=== PATIENT | female | born 1940 | race American Indian/Alaskan Native ===

== ENCOUNTER 2017-02-08 10:46 | Inpatient (IN) | payer MEDICARE ==
[2017-02-08 11:38] LABS: Basophils % (Auto) 0.5 % (0.0-1.8); Eosinophils % (Auto) 0.9 % (0.0-4.3); Hematocrit 36.1 % (30.3-42.9); Hemoglobin 11.9 gm/dl (10.1-14.3); Mean Corpuscular HGB Conc 33 % (30-34); Mean Corpuscular Hemoglobin 28 pg (28-32); Mean Corpuscular Volume 86 fl (79-97); Platelet Count 171 K/mm3 (140-440); Red Blood Count 4.23 M/mm3 (3.65-5.03); Red Cell Distribution Width 14.6 % (13.2-15.2); White Blood Count 5.1 K/mm3 (4.5-11.0)
[2017-02-08 11:41] LABS: Anion Gap 19 mmol/L; BUN/Creatinine Ratio 21; Blood Urea Nitrogen 19 mg/dL (7-17); Calcium 9.2 mg/dL (8.4-10.2); Carbon Dioxide 22 mmol/L (22-30); Chloride 102.5 mmol/L (98-107); Glucose 88 mg/dL (65-100); Potassium 3.9 mmol/L (3.6-5.0); Sodium 140 mmol/L (137-145)
[2017-02-08] MEDS ORDERED: NITROSTAT SL PRN (12:33)
[2017-02-08] MEDS ORDERED: NACL 0.9% 250ML 250 ML IV ONE (12:33)
--- NOTE | 2017-02-08 12:35 | Emergency Department Report ---
ED Chest Pain HPI - General Chief Complaint: Chest Pain Stated Complaint: CP Time Seen by Provider: 02/08/17 12:25 Source: patient, RN notes reviewed Mode of arrival: Ambulatory Limitations: No Limitations - History of Present Illness Initial Comments: This is a 76-year-old female who was previously unknown to this provider. She is visiting from [place] in [place]. Past medical history includes DVT, pulmonary embolus, currently on Coumadin therapy, hypertension, heart attack, does not have a stent. Presents to the ER with chest pain. The chest pain is left-sided. It did not radiate to the back, arms or neck. There is no vomiting or diaphoresis. There is no leg pain. There is no leg swelling. Patient recently flew here from [place]. There is no hematemesis or bright red blood per rectum. There is no vomiting or diaphoresis. Patient reports that she is in town until February 20, and cannot secure outpatient follow up with a buttonhole marker locally. She further reports that as far she knows, she hasn't had a recent stress test or cardiac catheterization. MD Complaint: chest pain -: Sudden, minutes(s) Onset: during exertion Pain Location: left chest Pain Radiation: none Severity: mild Consistency: now resolved Improves With: nothing Worsens With: nothing Context: recent immobilization, recent travel re: denies: nausea, vomting, diaphoresis, dyspnea, sense of impending doom Treatments Prior to Arrival: other (patient reports taking Coumadin) Aspirin use within the Past 7 Days: (0) No - Related Data Home Medications Medication Instructions Recorded Confirmed Last Taken Betaxolol HCl 10 mg PO DAILY 02/08/17 02/08/17 02/08/17 Cholecalciferol (Vitamin D3) 1,000 unit PO DAILY 02/08/17 02/08/17 02/07/17 [Vitamin D3] Citalopram [celeXA] 10 mg PO QHS 02/08/17 02/08/17 02/07/17 ISOSORBIDE MONOnitrate [Imdur ER] 30 mg PO DAILY 02/08/17 02/08/17 02/08/17 Pitavastatin Calcium [LiVALO] 2 mg PO DAILY 02/08/17 02/08/17 02/07/17 Warfarin [Coumadin] 7 mg PO QDAY 02/08/17 02/08/17 02/07/17 metFORMIN [Glucophage] 500 mg PO QDAY 02/08/17 02/08/17 02/07/17 Allergies Allergy/AdvReac Type Severity Reaction Status Date / Time codeine Allergy Unknown Verified 02/08/17 10:59 Heart Score - HEART Score History: Slightly suspicious EKG: Non-specific Age: > 65 Risk factors: 1-2 risk factors Troponin: < normal limit HEART Score: 4 - Critical Actions Critical Actions: 4-6 pts:12-16.6% risk of adverse cardiac event. Should be admitted ED Review of Systems ROS: Stated complaint: CP Other details as noted in HPI Constitutional: denies: fever Eyes: denies: vision change ENT: denies: epistaxis Respiratory: denies: wheezing Cardiovascular: chest pain Gastrointestinal: denies: vomiting Genitourinary: as per HPI Musculoskeletal: as per HPI Skin: as per HPI Neurological: as per HPI Psychiatric: as per HPI Hematological/Lymphatic: as per HPI ED Past Medical Hx - Past Medical History Previous Medical History?: Yes Hx Hypertension: Yes Hx Heart Attack/AMI: Yes Additional medical history: PE - Surgical History Past Surgical History?: No - Social History Smoking Status: Never Smoker Substance Use Type: None - Medications Home Medications: Home Medications Medication Instructions Recorded Confirmed Last Taken Type Betaxolol HCl 10 mg PO DAILY 02/08/17 02/08/17 02/08/17 History Cholecalciferol (Vitamin D3) 1,000 unit PO DAILY 02/08/17 02/08/17 02/07/17 History [Vitamin D3] Citalopram [celeXA] 10 mg PO QHS 02/08/17 02/08/17 02/07/17 History ISOSORBIDE MONOnitrate [Imdur ER] 30 mg PO DAILY 02/08/17 02/08/17 02/08/17 History Pitavastatin Calcium [LiVALO] 2 mg PO DAILY 02/08/17 02/08/17 02/07/17 History Warfarin [Coumadin] 7 mg PO QDAY 02/08/17 02/08/17 02/07/17 History metFORMIN [Glucophage] 500 mg PO QDAY 02/08/17 02/08/17 02/07/17 History ED Physical Exam - General Limitations: No Limitations General appearance: alert, in no apparent distress - Head Head exam: Present: atraumatic, normocephalic - Eye Eye exam: Present: normal appearance, EOMI. Absent: nystagmus - ENT ENT exam: Present: normal exam, normal orophraynx, mucous membranes moist, normal external ear exam - Neck Neck exam: Present: normal inspection, full ROM - Respiratory Respiratory exam: Present: normal lung sounds bilaterally. Absent: respiratory distress - Cardiovascular Cardiovascular Exam: Present: regular rate, normal rhythm, normal heart sounds. Absent: bradycardia, tachycardia, irregular rhythm, systolic murmur, diastolic murmur, rubs, gallop - GI/Abdominal GI/Abdominal exam: Present: soft, normal bowel sounds. Absent: distended, tenderness, guarding, rebound, rigid - Extremities Exam Extremities exam: Present: normal inspection, full ROM, normal capillary refill. Absent: tenderness, pedal edema, joint swelling, calf tenderness - Back Exam Back exam: Present: normal inspection, full ROM. Absent: tenderness, CVA tenderness (R), paraspinal tenderness, vertebral tenderness - Neurological Exam Neurological exam: Present: alert, oriented X3, CN II-XII intact, normal gait, other (Extraocular movements intact. Tongue midline. No facial droop. Facial sensation intact to light touch in the V1, V2, V3 distribution bilaterally. 5 and 5 strength in 4 extremities.. Sensation is intact to light touch in 4 extremities.). Absent: motor sensory deficit - Psychiatric Psychiatric exam: Present: normal affect, normal mood - Skin Skin exam: Present: warm, dry, intact, normal color. Absent: rash ED Course Vital Signs 02/08/17 02/08/17 02/08/17 10:55 11:57 12:00 Temperature 97.2 F L Pulse Rate 66 59 L 52 L Respiratory 12 13 8 L Rate Blood Pressure 157/85 156/90 156/90 O2 Sat by Pulse 100 100 Oximetry 02/08/17 02/08/17 02/08/17 12:30 13:00 14:16 Temperature Pulse Rate 59 L 58 L Respiratory 12 12 14 Rate Blood Pressure 136/79 143/80 143/80 O2 Sat by Pulse 100 100 Oximetry 02/08/17 02/08/17 02/08/17 14:30 15:00 16:00 Temperature Pulse Rate 57 L 55 L Respiratory 9 L 13 Rate Blood Pressure 143/80 145/77 148/86 O2 Sat by Pulse 100 100 Oximetry 02/08/17 02/08/17 02/08/17 16:30 17:00 17:30 Temperature Pulse Rate Respiratory Rate Blood Pressure 147/88 141/80 142/70 O2 Sat by Pulse Oximetry - Reevaluation(s) Reevaluation #1: 02/08/17 15:05 CT scan of the chest is negative for pulmonary embolus. Atelectasis versus infiltrate is suggested. Based on history, clinically doubt pneumonia, patient not coughing she is not having fevers, she is not having mucus production. However she'll be covered empirically with doxycycline, as well as azithromycin, Levaquin not appropriate given that patient is currently on Coumadin therapy. Case presents to the Hospital physician, Dr. Echeverria, he accepts the patient to the medical service. RAMO score - Ramo Score Age > 65: (1) Yes Aspirin use within the Past 7 Days: (0) No 3 or more CAD Risk Factors: (0) No 2 or more Angina events in past 24 hrs: (0) No Known CAD with more than 50% Stenosis: (0) No Elevated Cardiac Markers: (0) No ST Deviation Greater than 0.5mm: (0) No RAMO Score: 1 ED Medical Decision Making - Lab Data Result diagrams: 02/08/17 11:07 02/08/17 11:07 Vital Signs 02/08/17 10:55 Temperature 97.2 F L Pulse Rate 66 Respiratory 12 Rate Blood Pressure 157/85 O2 Sat by Pulse 100 Oximetry Lab Results 02/08/17 02/08/17 02/08/17 Range/Units 11:07 11:07 12:42 WBC 5.1 (4.5-11.0) K/mm3 RBC 4.23 (3.65-5.03) M/mm3 Hgb 11.9 (10.1-14.3) gm/dl Hct 36.1 (30.3-42.9) % MCV 86 (79-97) fl MCH 28 (28-32) pg MCHC 33 (30-34) % RDW 14.6 (13.2-15.2) % Plt Count 171 (140-440) K/mm3 Lymph % (Auto) 39.5 H (13.4-35.0) % [place] % (Auto) 9.0 H (0.0-7.3) % Eos % (Auto) 0.9 (0.0-4.3) % Baso % (Auto) 0.5 (0.0-1.8) % Lymph # 2.0 (1.2-5.4) K/mm3 [place] # 0.5 (0.0-0.8) K/mm3 Eos # 0.0 (0.0-0.4) K/mm3 Baso # 0.0 (0.0-0.1) K/mm3 Seg Neutrophils % 50.1 (40.0-70.0) % Seg Neutrophils # 2.5 (1.8-7.7) K/mm3 PT 22.6 H (12.2-14.9) Sec. INR 1.87 H (0.87-1.13) APTT 33.2 (24.2-36.6) Sec. D-Dimer 184.27 (0-234) ng/mlDDU Sodium 140 (137-145) mmol/L Potassium 3.9 (3.6-5.0) mmol/L Chloride 102.5 (98-107) mmol/L Carbon Dioxide 22 (22-30) mmol/L Anion Gap 19 mmol/L BUN 19 H (7-17) mg/dL Creatinine 0.9 (0.7-1.2) mg/dL Estimated GFR > 60 ml/min BUN/Creatinine Ratio 21 % Glucose 88 (65-100) mg/dL Calcium 9.2 (8.4-10.2) mg/dL Troponin T < 0.010 (0.00-0.029) ng/mL - EKG Data -: EKG Interpreted by [facility] - EKG Data 02/08/17 13:36 EKG #1 demonstrates normal sinus bradycardia, 57 bpm, left axis deviation, motion artifact, abnormal EKG, not morphologically consistent with ST elevation myocardial infarction 02/08/17 14:21 EKG #2 was unremarkable, unchanged from prior, still has persistent left axis deviation, not morphologically consistent with ST elevation myocardial infarction - Radiology Data Radiology results: report reviewed, image reviewed CT scan of the chest, interpreted by radiology: - Medical Decision Making Differential diagnosis, including without limited to: Pulmonary embolus, acute coronary syndrome, GERD, gastritis, pneumonia, hiatal hernia, reflux, Assessment and plan: 76-year-old female, subtherapeutic INR, chest pain, recent airplane trip from [place], I do not feel the patient is low risk by well's criteria, therefore even though her d-dimer is negative, given her subtherapeutic INR and recent travel, a CT scan of the chest is obtained to exclude recurrent pulmonary embolus. She also reports a history of cardiac disease, hasn't had a recent risk stratification. Therefore, the patient will be admitted to the hospital for acute coronary syndrome or stratification. CT scan of the chest interpretation is pending at this time, she indicates she is not having any pain at this time. Critical care attestation.: If time is entered above; I have spent that time in minutes in the direct care of this critically ill patient, excluding procedure time. ED Disposition Clinical Impression: Chest pain, Subtherapeutic international normalized ratio (INR) Disposition: OP ADMIT IP TO THIS HOSP Is pt being admited?: Yes Does the pt Need Aspirin: Yes Condition: Good
[2017-02-08 13:10] LABS: INR 1.87 (0.87-1.13)
[2017-02-08 13:11] LABS: Partial Thromboplastin Time 33.2 Sec. (24.2-36.6)
[2017-02-08] MEDS ORDERED: BABY ASPIRIN PO ONE (13:40)
--- NOTE | 2017-02-08 14:24 | Cat Scan Report ---
FINAL REPORT EXAM: CT ANGIO CHEST HISTORY: cp TECHNIQUE: CT angiography of the chest was performed. PRIORS: None. FINDINGS: There are coronary artery atherosclerotic calcifications. There is no aortic dissection seen. There is no significant mediastinal or hilar mass seen. There are no filling defects seen within the pulmonary arterial circulation to suggest pulmonary embolism. There is some bibasilar interstitial and airspace density which may be acute infiltrate. There is also some dependent atelectasis. There is no pneumothorax seen. IMPRESSION: There is no pulmonary embolism or aortic dissection seen. There are bibasilar interstitial and airspace lung parenchymal opacities which could represent acute interstitial and alveolar infiltration superimposed on some dependent atelectasis.
[2017-02-08] MEDS ORDERED: VIBRAMYCIN PO ONE (15:04)
--- NOTE | 2017-02-08 15:26 | History and Physical Report ---
History of Present Illness Chief complaint: My chest started hurting History of present illness: 76 YO Female with HTN, NM, PE on coumadin, DM, HLD, Metabolic Syndrome presents to ED for evaluation. Pt states that she experienced acute onset left sided chest pain while walking in the grocery store this morning. Pain was 9/10, sharp , nonradiating, localized to the left chest, not worsened with exertion, or relieved with rest. Pt denies diaphoresis, palpitations, NVD, Syncope, Leg swelling, Calf pain, recent ill contacts, trauma, hemoptysis, BRBPR, productive cough. Pt seen and evaluated in ED and found to have symptoms consistent with ACS. Pt treated IAW chest pain protocol. Cardiology consulted in ED and patient is admitted to telemetry. Past History Past Medical History: acute NM, diabetes, hypertension, hyperlipidemia, pulmonary embolism, other (Metabolic syndrome) Past Surgical History: No surgical history, Other (reviewed) Social history: , lives with family. denies: smoking, alcohol abuse, prescription drug abuse Family history: diabetes, hypertension Medications and Allergies Allergies Allergy/AdvReac Type Severity Reaction Status Date / Time codeine Allergy Unknown Verified 02/08/17 10:59 Home Medications Medication Instructions Recorded Confirmed Last Taken Type Betaxolol HCl 10 mg PO DAILY 02/08/17 02/08/17 02/08/17 History Cholecalciferol (Vitamin D3) 1,000 unit PO DAILY 02/08/17 02/08/17 02/07/17 History [Vitamin D3] Citalopram [celeXA] 10 mg PO QHS 02/08/17 02/08/17 02/07/17 History ISOSORBIDE MONOnitrate [Imdur ER] 30 mg PO DAILY 02/08/17 02/08/17 02/08/17 History Pitavastatin Calcium [LiVALO] 2 mg PO DAILY 02/08/17 02/08/17 02/07/17 History Warfarin [Coumadin] 7 mg PO QDAY 02/08/17 02/08/17 02/07/17 History metFORMIN [Glucophage] 500 mg PO QDAY 02/08/17 02/08/17 02/07/17 History Active Meds: Active Medications Nitroglycerin (Nitrostat) 0.4 mg SL .Q5MIN PRN PRN Reason: Chest Pain Review of Systems Constitutional: no weight loss, no weight gain, no fever, no chills Ears, nose, mouth and throat: no ear pain, no ear discharge, no tinnitis, no decreased hearing, no nose pain, no nasal congestion Breasts: no change in shape, no swelling, no mass Cardiovascular: chest pain, no orthopnea, no palpitations, no rapid/irregular heart beat, no syncope, no shortness of breath, no dyspnea on exertion Respiratory: no cough, no cough with sputum, no excessive sputum, no hemoptysis , no shortness of breath Gastrointestinal: no nausea, no vomiting, no diarrhea Genitourinary Female: no pelvic pain, no flank pain, no menorrhagia, no dysuria , no urinary frequency Rectal: no pain, no incontinence, no bleeding Musculoskeletal: no neck stiffness, no neck pain, no shooting arm pain, no arm numbness/tingling, no low back pain Integumentary: no rash, no pruritis, no redness, no sores Neurological: no head injury, no transient paralysis, no paralysis, no weakness , no parathesias Psychiatric: no anxiety, no memory loss, no change in sleep habits, no sleep disturbances, no insomnia Endocrine: no cold intolerance, no heat intolerance, no polyphagia, no excessive thirst, no polydipsia, no polyuria Hematologic/Lymphatic: no easy bruising, no easy bleeding Allergic/Immunologic: no urticaria, no allergic rhinitis, no wheezing Exam - Constitutional Vitals: Temp Pulse Resp BP Pulse Ox 97.2 F L 66 12 157/85 100 02/08/17 10:55 02/08/17 10:55 02/08/17 10:55 02/08/17 10:55 02/08/17 10:55 General appearance: Present: mild distress - EENT Eyes: Present: PERRL ENT: hearing intact, clear oral mucosa - Neck Neck: Present: supple, normal ROM - Respiratory Respiratory effort: normal Respiratory: bilateral: CTA - Cardiovascular Heart Sounds: Present: S1 & S2. Absent: rub, click - Extremities Extremities: pulses symmetrical, No edema Peripheral Pulses: within normal limits - Abdominal General gastrointestinal: Present: soft, non-tender, non-distended, normal bowel sounds Female genitourinary: Present: normal - Integumentary Integumentary: Present: clear, warm, dry - Musculoskeletal Musculoskeletal: gait normal, strength equal bilaterally - Psychiatric Psychiatric: appropriate mood/affect, intact judgment & insight - Neurologic Neurologic: CNII-XII intact, moves all extremities Results - Labs CBC & Chem 7: 02/08/17 11:07 02/08/17 11:07 Labs: Abnormal lab results 02/08/17 02/08/17 02/08/17 Range/Units 11:07 11:07 12:42 Lymph % (Auto) 39.5 H (13.4-35.0) % [place] % (Auto) 9.0 H (0.0-7.3) % PT 22.6 H (12.2-14.9) Sec. INR 1.87 H (0.87-1.13) BUN 19 H (7-17) mg/dL Assessment and Plan - Patient Problems (1) ACS (acute coronary syndrome) Current Visit: Yes Status: Acute Plan to address problem: Serial cardiac enzymes, ekg, telemetry, Echo, Stress test, cardiology consulted , morphine, supplemental oxygen, nitro, aspirin, (2) HTN (hypertension) Current Visit: Yes Status: Acute Plan to address problem: monitor bp q shift, cotinue medical management, IV hydralazine for systolic above 160 (3) HLD (hyperlipidemia) Current Visit: Yes Status: Acute Plan to address problem: Lipid panel, statin therapy (4) Diabetes Current Visit: Yes Status: Acute Plan to address problem: ADA diet, insulin, accu check (5) Subtherapeutic international normalized ratio (INR) Current Visit: Yes Status: Acute Plan to address problem: Resume coumadin, therapeutic lovenox until INR therapeutic. (6) DVT prophylaxis Current Visit: Yes Status: Acute
[2017-02-08] MEDS ORDERED: TYLENOL PO PRN (15:27)
[2017-02-08] MEDS ORDERED: ZOFRAN IV PRN (15:27)
[2017-02-08] MEDS ORDERED: PROVENTIL IH PRN (15:27)
[2017-02-08] MEDS ORDERED: D50W (25GM) Syringe IV PRN (15:27)
[2017-02-08] MEDS ORDERED: SODIUM CHLORIDE FLUSH SYRINGE 10 ML IV PRN (15:27)
[2017-02-08] MEDS ORDERED: MORPHINE IV PRN (15:27)
[2017-02-08] MEDS: PEPCID PO SCH (21:07)
[2017-02-08] MEDS: LOVENOX SUB-Q SCH ×2 (21:08)
[2017-02-08] MEDS: COUMADIN PO SCH (21:08)
[2017-02-08] MEDS ORDERED: PRAVACHOL PO SCH (22:00)
[2017-02-08] MEDS ORDERED: celeXA PO SCH (22:00)
[2017-02-09 06:19] LABS: INR 2.24 (0.87-1.13)
[2017-02-09] MEDS ORDERED: LEXISCAN IV ONE ×2 (08:08→08:19)
--- NOTE | 2017-02-09 09:51 | Consultation ---
History of Present Illness Consult date: 02/09/17 Requesting physician: MARISSA SEARS Consult reason: chest pain History of present illness: Patient is a very pleasant 76-year-old who apparently is visiting [place] from [place]. She reports a history of DVT for which she is on long-term Coumadin therapy. She is unclear about her cardiac history though she reports that she might have had a heart attack but does not report having any stent placed. While walking in the grocery store she apparently had some weight left-sided chest pain. Able to Quantitate the Pain no reports that it was significant enough for her to stop and take several deep breaths. By the time she presented to the ER she was chest pain-free. Currently she is being chest pain- free and cardiac enzymes are negative. Past History Past Medical History: acute NC, diabetes, hypertension, hyperlipidemia, pulmonary embolism, other (Metabolic syndrome) Past Surgical History: No surgical history, Other (reviewed) Social history: , lives with family. denies: smoking, alcohol abuse, prescription drug abuse Family history: diabetes, hypertension Medications and Allergies Allergies Allergy/AdvReac Type Severity Reaction Status Date / Time codeine Allergy Unknown Verified 02/08/17 10:59 Home Medications Medication Instructions Recorded Confirmed Last Taken Type Betaxolol HCl 10 mg PO DAILY 02/08/17 02/08/17 02/08/17 History Cholecalciferol (Vitamin D3) 1,000 unit PO DAILY 02/08/17 02/08/17 02/07/17 History [Vitamin D3] Citalopram [celeXA] 10 mg PO QHS 02/08/17 02/08/17 02/07/17 History ISOSORBIDE MONOnitrate [Imdur ER] 30 mg PO DAILY 02/08/17 02/08/17 02/08/17 History Pitavastatin Calcium [LiVALO] 2 mg PO DAILY 02/08/17 02/08/17 02/07/17 History Warfarin [Coumadin] 7 mg PO QDAY 02/08/17 02/08/17 02/07/17 History metFORMIN [Glucophage] 500 mg PO QDAY 02/08/17 02/08/17 02/07/17 History Active Meds: Active Medications Acetaminophen (Tylenol) 650 mg PO Q4H PRN PRN Reason: Pain MILD(1-3)/Fever >100.5/[place]OR[place]ES Albuterol (Proventil) 2.5 mg IH Q4HRT PRN PRN Reason: Shortness Of Breath Cholecalciferol (Vitamin D3) 1,000 unit PO DAILY [facility] Citalopram Hydrobromide (Celexa) 10 mg PO QHS [facility] Last Admin: 02/08/17 21:08 Dose: 10 mg Dextrose (D50w (25gm) Syringe) 50 ml IV PRN PRN PRN Reason: Hypoglycemia Enoxaparin Sodium (Lovenox) 100 mg 1 mg/kg (100 mg) SUB-Q Q12HR [facility] Last Admin: 02/08/17 21:08 Dose: 100 mg Famotidine (Pepcid) 20 mg PO BID [facility] Last Admin: 02/08/17 21:07 Dose: 20 mg Isosorbide Mononitrate (Imdur) 30 mg PO DAILY [facility] Miscellaneous Medication (Betaxolol Hcl [Betaxolol Hcl]) 10 mg PO DAILY [facility] Morphine Sulfate (Morphine) 2 mg IV Q4H PRN PRN Reason: Pain, Moderate (4-6) Nitroglycerin (Nitrostat) 0.4 mg SL .Q5MIN PRN PRN Reason: Chest Pain Ondansetron HCl (Zofran) 4 mg IV Q8H PRN PRN Reason: N/V unrelieved by Reglan Pravastatin Sodium (Pravachol) 40 mg PO QHS [facility] Last Admin: 02/08/17 21:08 Dose: 40 mg Sodium Chloride (Sodium Chloride Flush Syringe 10 Ml) 10 ml IV PRN PRN PRN Reason: LINE FLUSH Warfarin Sodium (Coumadin) 7.5 mg PO DAILY@1700 [facility] Last Admin: 02/08/17 21:08 Dose: 7.5 mg Review of Systems All systems: negative (except as mentioned in H&P) Physical Examination Vital Signs Temp Pulse Resp BP Pulse Ox 97.2 F L 66 12 157/85 100 02/08/17 10:55 02/08/17 10:55 02/08/17 10:55 02/08/17 10:55 02/08/17 10:55 Narrative exam: Physical examination Vitals reviewed GEN: No acute distress noted HEENT: Carotids 2+ NECK: Supple CVS: S1 and S2 heard no significant murmur or gallop noted LUNGS/CHEST: Normal auscultation ABD: Soft nontender Extremities: No edema noted normal color NEURO: Alert moves all all 4 extremities PSY: Stable Results 02/08/17 11:07 02/08/17 11:07 Coagulation 02/08/17 02/09/17 Range/Units 12:42 05:21 PT 22.6 H 26.1 H (12.2-14.9) Sec. INR 1.87 H 2.24 H (0.87-1.13) APTT 33.2 (24.2-36.6) Sec. Lipids 02/08/17 Range/Units 11:07 Triglycerides 65 (2-149) mg/dL Cholesterol 186 (50-199) mg/dL HDL Cholesterol 97 H (40-59) mg/dL Cholesterol/HDL Ratio 1.91 % CBC 02/08/17 Range/Units 11:07 WBC 5.1 (4.5-11.0) K/mm3 RBC 4.23 (3.65-5.03) M/mm3 Hgb 11.9 (10.1-14.3) gm/dl Hct 36.1 (30.3-42.9) % Plt Count 171 (140-440) K/mm3 Lymph # 2.0 (1.2-5.4) K/mm3 [place] # 0.5 (0.0-0.8) K/mm3 Eos # 0.0 (0.0-0.4) K/mm3 Baso # 0.0 (0.0-0.1) K/mm3 Comprehensive Metabolic Panel 02/08/17 Range/Units 11:07 Sodium 140 (137-145) mmol/L Potassium 3.9 (3.6-5.0) mmol/L Chloride 102.5 (98-107) mmol/L Carbon Dioxide 22 (22-30) mmol/L BUN 19 H (7-17) mg/dL Creatinine 0.9 (0.7-1.2) mg/dL Glucose 88 (65-100) mg/dL Calcium 9.2 (8.4-10.2) mg/dL EKG interpretations - Telemetry EKG Rhythm: Sinus Rhythm (no acute ST-T wave changes suggestive C of ischemia) Assessment and Plan Impression 1. Chest pain of unclear etiology that has since resolved with negative serial troponins and negative EKG 2. History of DVT on long-term Coumadin therapy 3. Coumadin therapy INR slightly decreased today 4. Hypertension 5. Hyperlipidemia Plan In short this is a 76-year-old with apparent significant cardiac history presented one episode of chest pain that has since resolved. So for her stay has been uneventful with negative cardiac enzymes and no recurrence of chest pain. In view of the history patient is to undergo a myocardial perfusion stress test. If stress test is negative patient can be discharged home with outpatient follow-up with her primary jive developer We thank you for involving us in the care of this very pleasant patient
[2017-02-09] MEDS ORDERED: VITAMIN D3 PO SCH (10:00)
[2017-02-09] MEDS ORDERED: COUMADIN PO SCH (10:00)
[2017-02-09] MEDS ORDERED: NON-FORMULARY (Cholecalciferol (Vitamin D3) [Vitamin D3] 1,000 UNIT) PO SCH (10:00)
[2017-02-09] MEDS ORDERED: IMDUR PO SCH (10:00)
[2017-02-09] MEDS ORDERED: BETAXOLOL HCL 10 MG PO SCH (10:00)
[2017-02-09] MEDS ORDERED: PITAVASTATIN CALCIUM 2 MG PO SCH (10:00)
[2017-02-09] MEDS: PEPCID PO SCH (11:31)
[2017-02-09] MEDS: LOVENOX SUB-Q SCH (11:31)
[2017-02-09 16:23] VITALS: BP 108/72
--- NOTE | 2017-02-09 16:40 | Discharge Summary ---
Providers - Providers Date of Admission: 02/08/17 15:28 Date of discharge: 02/09/17 Attending physician: MARISSA SEARS 02/08/17 Consult to Cardiac Rehabilitation [CONS] Routine Reason For Exam: Phase I 02/08/17 15:28 Consult to Cardiology [CONS] Routine Consulting Provider: RICK WILLAMS Reason For Exam: acs Primary care physician: AGNES ADAMS Hospitalization Condition: Good Hospital course: Assessment and Plan - Patient Problems (1) ACS (acute coronary syndrome) Current Visit: Yes Status: Acute Plan to address problem: Serial cardiac enzymes, ekg, telemetry, Echo, Stress test, cardiology consulted , morphine, supplemental oxygen, nitro, aspirin, Lexiscan normal (2) HTN (hypertension) Current Visit: Yes Status: Acute Plan to address problem: monitor bp q shift, cotinue medical management, IV hydralazine for systolic above 160 (3) HLD (hyperlipidemia) Current Visit: Yes Status: Acute Plan to address problem: Lipid panel, statin therapy (4) Diabetes Current Visit: Yes Status: Acute Plan to address problem: ADA diet, insulin, accu check (5) Subtherapeutic international normalized ratio (INR) Current Visit: Yes Status: Acute Plan to address problem: Resume coumadin, therapeutic lovenox until INR therapeutic. (6) DVT prophylaxis Current Visit: Yes Status: Acute Disposition: DC- TO HOME OR SELFCARE Core Measure Documentation - Palliative Care Palliative Care/ Comfort Measures: Not Applicable - Core Measures Any of the following diagnoses?: none Exam - Constitutional Vitals: Temp Pulse Resp BP Pulse Ox 98.3 F 60 16 108/72 100 02/09/17 15:25 02/09/17 15:25 02/09/17 15:25 02/09/17 15:25 02/09/17 15:25 General appearance: Present: no acute distress, well-nourished - EENT Eyes: Present: PERRL ENT: hearing intact, clear oral mucosa - Neck Neck: Present: supple, normal ROM - Respiratory Respiratory effort: normal Respiratory: bilateral: CTA - Cardiovascular Heart Sounds: Present: S1 & S2. Absent: rub, click - Extremities Extremities: pulses symmetrical, No edema Peripheral Pulses: within normal limits - Abdominal General gastrointestinal: Present: soft, non-tender, non-distended, normal bowel sounds Female genitourinary: Present: normal - Integumentary Integumentary: Present: clear, warm, dry - Musculoskeletal Musculoskeletal: gait normal, strength equal bilaterally - Psychiatric Psychiatric: appropriate mood/affect, intact judgment & insight - Neurologic Neurologic: CNII-XII intact, moves all extremities Plan Activity: no restrictions Diet: low fat, low cholesterol, low salt, diabetic Follow up with: PRIMARY CARE, [Referring] - 3-5 Days Forms: Warfarin Discharge Instruction
[2017-02-09] MEDS: COUMADIN PO SCH (18:00)
--- NOTE | 2017-02-10 13:09 | Treadmill Report ---
PROCEDURES PERFORMED: Unremarkable myocardial perfusion scan. Myocardial perfusion scan was done using the standard protocol. Rest and stress images were compared. Gated analysis, LV function assessment was done. FINDINGS: Homogeneous uptake of tracer noted in the rest and stress images. There is however a little bit of inferior attenuation noted on the stress images that on gated analysis appear to be more of diaphragmatic attenuation. No other areas of significant infarct or ischemia were noted. Normal LV function. IMPRESSION: 1. Mild inferior attenuation. 2. No evidence of significant ischemia or infarction. 3. Preserved LV systolic function. 4. This is a low risk cardiac study. JOB# [id number] ABIGAIL/LORAINE VELASQUEZ
== END 2017-02-09 18:20 | disposition home or self-care (01) | DRG 311 ==
LOC: ED 10:46 → 4A 15:28
PROVIDERS: ADMIT Internal Medicine; ATTEND Internal Medicine
DX: I24.9 Acute ischemic heart disease, unspecified (principal); I10 Essential (primary) hypertension; E78.5 Hyperlipidemia, unspecified; E11.9 Type 2 diabetes mellitus without complications; E88.81 Metabolic syndrome and other insulin resistance; Z88.5 Allergy status to narcotic agent; I25.2 Old myocardial infarction; Z86.711 Personal history of pulmonary embolism; Z82.49 Family history of ischemic heart disease and other diseases of the circulatory system; Z83.3 Family history of diabetes mellitus
CPT/HCPCS: 36415; 71275; 78452; 80048; 80061; 83036; 84484; 85025; 85379; 85610; 85730; 87040; 93005; 93010; 93017; 93306; A9270-GY; A9502; J1650; J2785; Q9967